=== PATIENT | male | born 1940 | race Caucasian/White ===

== ENCOUNTER 2019-06-14 05:13 | Day surgery (SDC) ==
[2019-06-07 08:58] LABS: HEMOGLOBIN 14.5 g/dL (14.0-18.0); MCHC 34.5 g/dL (33-37); MCV 89.7 FL (81-99); MPV 8.6 FL (7.4-10.4); RBC 4.68 XMIL (4.7-6.1); RDW 13.1 % (11.5-14.5); WBC 5.87 X1000 (4.8-10.8)
[2019-06-07 09:25] LABS: CALCIUM 9.3 mg/dL (8.8-10.2); CREATININE 1.3 mg/dL (0.7-1.2); POTASSIUM 4.8 mmol/L (3.5-5.1)
[2019-06-14] MEDS ORDERED: LR 1,000 ML ONE (06:00)
[2019-06-14] MEDS ORDERED: PEPCID ONE (06:00)
[2019-06-14] MEDS ORDERED: LEVAQUIN 500 MG/D5W 500 MG/100 ML IVPB ONE (06:00)
[2019-06-14] MEDS ORDERED: REGLAN ONE (06:00)
[2019-06-14] MEDS ORDERED: DIPRIVAN 1% ONE (06:18)
[2019-06-14] MEDS ORDERED: XYLOCAINE-MPF 2% ONE (06:18)
[2019-06-14] MEDS ORDERED: FENTANYL ONE (06:19)
[2019-06-14] MEDS ORDERED: ZOFRAN ONE (07:21)
[2019-06-14] MEDS ORDERED: EPHEDRINE ONE (07:21)
[2019-06-14] MEDS ORDERED: DECADRON ONE (07:21)
[2019-06-14] MEDS ORDERED: NEO-SYNEPHRINE ONE (08:54)
[2019-06-14] MEDS ORDERED: SODIUM CHLORIDE 0.9% 10 ML ONE (08:54)
[2019-06-14] MEDS ORDERED: B & O 15A SUPP ONE (09:24)
[2019-06-14] MEDS ORDERED: NS 1,000 ML ONE (10:36)
[2019-06-14] MEDS ORDERED: NORCO-10 PO PRN (10:45)
[2019-06-14] MEDS ORDERED: BENADRYL LIQUID PO PRN (10:45)
[2019-06-14] MEDS ORDERED: NORCO-5 PO PRN (10:45)
[2019-06-14] MEDS ORDERED: DITROPAN PO PRN (10:45)
[2019-06-14] MEDS ORDERED: NORCO-7.5 PO PRN (10:45)
[2019-06-14] MEDS ORDERED: PHENERGAN IV PRN (10:45)
[2019-06-14] MEDS ORDERED: LABETALOL IV PRN (10:45)
[2019-06-14] MEDS ORDERED: SODIUM CHLORIDE 0.9% INJ PRN (10:45)
[2019-06-14] MEDS ORDERED: LR 500 ML ONE (10:47)
--- NOTE | 2019-06-14 10:55 | OPERATIVE NOTE ---
PROCEDURE DATE: 06/14/2019 SURGEON: Kalyan Azar MD. PREOPERATIVE DIAGNOSIS: Enlarged prostate with obstructive and irritative voiding symptoms. POSTOPERATIVE DIAGNOSIS: Enlarged prostate with obstructive and irritative voiding symptoms. PROCEDURE PERFORMED: Cystoscopic examination with transurethral resection of prostate and removal of bladder stones. ANESTHESIA: General via laryngeal mask. FINDINGS: Cystoscopic Exam: Urethra-greater than 28-Bermudian without stricture. Prostate-coapting lateral lobes, elevated bladder neck, large median lobe. Length approximately 7 to 8 cm. Bladder- normal ureteral orifices bilaterally. Grade 2 trabeculations. Small stones in the bladder, the largest about 1.5 cm. No papillary lesions. No diverticula. INDICATION FOR PROCEDURE: This 78-year-old male has a long history of obstructive voiding symptoms. He has a history of urinary retention. He is on maximum medical therapy and has been for several years. He has decided he would like transurethral resection of prostate in an attempt to start voiding easier. DESCRIPTION OF PROCEDURE: After informed consent was obtained from the patient and him receiving IV antibiotics, he was taken the main OR cystoscopy room and placed in a supine position. General anesthesia via laryngeal mask was achieved. He was then placed in the low lithotomy position, and prepped and draped in the usual sterile fashion for a cystoscopic exam. A 21-Bermudian sheath cystoscope was passed through the patient's urethra, prostate, and into the bladder with findings as noted above. The cystoscope was removed. The 28-Bermudian continuous flow Olympus resectoscope sheath was placed. The bipolar loop electrode was placed. Both ureteral orifices were visualized, as well as the bladder stones. The resection was started by taking down the median lobe. After this was accomplished, the resection was started at the 6 o'clock position, going from the level of the bladder neck to the level of the verumontanum, proceeding in a counterclockwise direction to the 2 o'clock position. The resection was then started back at the 6 o'clock position, going from the level of the bladder neck to the level of the verumontanum, proceeding in a clockwise direction to the 10 o'clock position. Tissue from the anterior prostatic urethra was removed between the 2 o'clock and 10 o'clock positions, the level of the bladder neck, level of the verumontanum. The chips were removed from the bladder with the Ellik evacuators. The hemostasis was achieved with electrocautery. At completion, both ureteral orifices were intact. The largest stone was removed with the resectoscope by trapping the stone between the loop and the sheath. The entire sheath was removed. The stone was sent to pathology. A three-way Hale catheter was placed. Continuous bladder irrigation was started. The efflux continued to be red. The Hale catheter was removed. The resectoscope was returned to the bladder. A bleeding area was seen at about the 12 o'clock position distal to the bladder neck. This was cauterized and the bladder appeared clear. The resectoscope was removed. A 24-Bermudian continuous-flow three-way Hale was passed through the urethra, prostate, and into the bladder. There were 40 mL of sterile water placed in the Hale's balloon. The Hale was placed to gravity drain. The Hale catheter was placed on light traction. The efflux was completely clear when bladder irrigation was started. He tolerated the procedure well. Estimated blood loss 400 mL. He was taken to the recovery room in good condition. Prior to leaving the OR, a 15-A B and O suppository was placed without difficulty. cc: Kalyan Azar MD
[2019-06-14] MEDS: NS 1,000 ML IV SCH (11:07)
[2019-06-14 12:28] LABS: URINE SOURCE CATH
[2019-06-14 12:32] LABS: BILIRUBIN URINE NEGATIVE (NEGATIVE); BLOOD URINE LARGE (NEGATIVE); COLOR BROWN; GLUCOSE URINE 300 mg/dL (NEGATIVE); KETONE URINE TRACE mg/dL (NEGATIVE); LEUKOCYTES URINE NEGATIVE (NEGATIVE); NITRITE URINE NEGATIVE (NEGATIVE); PH URINE 6.5; PROTEIN URINE 70 mg/dL (NEGATIVE); SP GRAVITY URINE 1.006; TURBIDITY URINE HAZY (CLEAR); UR EPITHELIAL CELLS <10 /HPF (<10); URINE BACTERIA NEGATIVE /HPF; URINE RBC TNTC /HPF (<10); URINE WBC <10 /HPF (<10); UROBILINOGEN URINE NORMAL (NORMAL)
[2019-06-14] MEDS: HUMULIN R SUBQ SCH ×2 (17:00→21:30)
[2019-06-14] MEDS ORDERED: B & O 15A SUPP PR PRN (18:00)
[2019-06-14] MEDS: COLACE PO SCH (20:49)
[2019-06-14] MEDS: PEPCID PO SCH (20:49)
[2019-06-14] MEDS: PERIDEX MT SCH (20:49)
[2019-06-14] MEDS ORDERED: AMARYL PO SCH (21:00)
[2019-06-14] MEDS ORDERED: GLUCOPHAGE PO SCH (21:00)
[2019-06-14] MEDS ORDERED: ASPIRIN PO SCH (21:00)
[2019-06-15] MEDS: NS 1,000 ML IV SCH (04:32)
[2019-06-15] MEDS ORDERED: SYNTHROID PO SCH (07:00)
[2019-06-15 07:01] LABS: HEMOGLOBIN 12.3 g/dL (14.0-18.0); MCH 31.2 PG (27-31); MCHC 34.2 g/dL (33-37); MCV 91.4 FL (81-99); MPV 8.8 FL (7.4-10.4); RBC 3.94 XMIL (4.7-6.1); RDW 13.4 % (11.5-14.5); WBC 7.15 X1000 (4.8-10.8)
[2019-06-15] MEDS: HUMULIN R SUBQ SCH (07:06)
[2019-06-15 07:33] LABS: CALCIUM 8.5 mg/dL (8.8-10.2); CREATININE 1.3 mg/dL (0.7-1.2)
[2019-06-15 07:36] VITALS: BP 126/79
[2019-06-15] MEDS ORDERED: GLUCOPHAGE PO SCH (08:00)
[2019-06-15] MEDS ORDERED: AMARYL PO SCH (08:00)
[2019-06-15] MEDS ORDERED: TOPROL XL PO SCH (09:00)
[2019-06-15] MEDS ORDERED: NORVASC PO SCH (09:00)
[2019-06-15] MEDS: PEPCID PO SCH (09:06)
[2019-06-15] MEDS: COLACE PO SCH (09:07)
[2019-06-15] MEDS: PERIDEX MT SCH (09:07)
== END 2019-06-15 10:13 | disposition home or self-care (01) ==
LOC: 4N 05:13 → OR 05:13
PROVIDERS: ATTEND Urology
PROC: UR.TURP (2019-06-14 06:53)